=== PATIENT | male | born 1985 | race Caucasian/White ===

== ENCOUNTER 2018-03-10 10:17 | Emergency (ER) | payer SELFPAY ==
[~2018-03-10] VITALS: Ht 180.3 cm; Wt 109.0 kg
[2018-03-10 10:21] VITALS: BP 131/81
== END 2018-03-10 12:16 | disposition home or self-care (01) ==
LOC: ED 10:45
DX: J20.9 Acute bronchitis, unspecified (principal); J30.2 Other seasonal allergic rhinitis; F17.210 Nicotine dependence, cigarettes, uncomplicated
CPT/HCPCS: 71046; 93005; 99284

== ENCOUNTER 2019-07-18 09:32 | Emergency (ER) | payer MEDICAID ==
[~2019-07-18] VITALS: Ht 180.3 cm; Wt 134.0 kg
[2019-07-18 09:35] VITALS: BP 158/87
--- NOTE | 2019-07-18 09:42 | NUR ---
PATIENT BROUGHT BACK FROM TRIAGE WITH CHIEF COMPLAINT OF RIGHT DENTAL PAIN STARTING LAST NIGHT.
--- NOTE | 2019-07-18 10:02 | NUR ---
DISCHARGE INSTRUCTIONS REVIEWED
== END 2019-07-18 10:04 | disposition home or self-care (01) ==
LOC: ED 09:50
DX: K02.9 Dental caries, unspecified (principal); K08.89 Other specified disorders of teeth and supporting structures
CPT/HCPCS: 99283

== ENCOUNTER 2020-10-06 08:26 | Emergency (ER) | payer MEDICAID ==
[~2020-10-06] VITALS: Ht 180.3 cm; Wt 136.0 kg
--- NOTE | 2020-10-06 08:47 | NUR ---
ER PROVIDER AT BEDSIDE FOR EVALUATION.
--- NOTE | 2020-10-06 08:49 | NUR ---
PATIENT WALKED BACK FROM TRIAGE WITH CHIEF C/O "THE WORST COLD OF MY LIFE." PER PATIENT FOR 1.5 WEEKS HE'S HAD FEVER, COUGH, BODY ACHES. PATIENT DENIES N/V/D. PATIENT STATES "I JUST WANT TO MAKE SURE I DON'T HAVE COVID." OSWALDO, SARAH, CALL LIGHT WITHIN REACH.
--- NOTE | 2020-10-06 09:06 | NUR ---
X-RAY TECH AT BEDSIDE.
[2020-10-06 09:37] VITALS: BP 163/96
--- NOTE | 2020-10-06 09:45 | NUR ---
Patient given discharge instructions and prescriptions and they have confirmed that they understand the instructions. Patient stable and ambulatory with steady gait from ED to private vehicle.
== END 2020-10-06 09:46 | disposition home or self-care (01) ==
LOC: ED 09:13
DX: J18.0 Bronchopneumonia, unspecified organism (principal); Z20.822 Contact with and (suspected) exposure to COVID-19; R09.81 Nasal congestion; R05 Cough; R50.9 Fever, unspecified; M79.10 Myalgia, unspecified site
CPT/HCPCS: 71045; 87635; 99284

== ENCOUNTER 2021-02-25 11:47 | Emergency (ER) | payer MEDICAID ==
[~2021-02-25] VITALS: Ht 180.3 cm; Wt 138.6 kg
--- NOTE | 2021-02-25 12:24 | NUR ---
INTNAL CONTACT WITH PT: "THE LAST COUPLE OF DAYS MY LEFT FOOT HAS BEEN SUPER SWOLLEN AND NOW MY RIGHT ONE IS STARTING TO GET SWOLLEN. I HAVE PAIN IN MY LEFT CALF WHEN I PUSH IT". SX STARTED 4-5 DAYS AGO. PT ATTACHED TO MONITORS. VSS. CHACON. AWAITING RESULTS.
[2021-02-25 12:25] LABS: BASOPHILS % (AUTO) 1 % (0-1); EOSINOPHILS % (AUTO) 3 % (1-7); LYMPHOCYTES % (AUTO) 35 % (22-44); MEAN CORPUSCULAR HEMOGLOBIN 32.2 pg (27.5-34.5); MEAN CORPUSCULAR HGB CONC 34.6 g/dL (33.2-36.2); MEAN PLATELET VOLUME 7.9 fL (7.4-10.4); MONOCYTES % (AUTO) 7 % (2-9); NEUTROPHILS % (AUTO) 54 % (42-75); PLATELET COUNT 223 x10^3/uL (130-400); RED BLOOD COUNT 4.92 x10^6/uL (4.38-5.82); RED CELL DISTRIBUTION WIDTH 14.1 % (9.4-14.8)
[2021-02-25 12:38] LABS: ALANINE AMINOTRANSFERASE 39 U/L (12-78); ALBUMIN 3.3 g/dL (3.4-5.0); ANION GAP 5 mmol/L (5-15); CHLORIDE 112 mmol/L (98-107); CREATININE 1.07 mg/dL (0.7-1.3)
[2021-02-25 12:42] LABS: ALKALINE PHOSPHATASE 76 U/L (45-117); BILIRUBIN,TOTAL 0.6 mg/dL (0.2-1.0); TOTAL PROTEIN 6.7 g/dL (6.4-8.2)
[2021-02-25 13:23] VITALS: BP 138/88
--- NOTE | 2021-02-25 13:47 | NUR ---
Patient given discharge instructions and they have confirmed that they understand the instructions. Patient ambulatory with steady gait. NAD, all questions answered appropriately, denies additional needs at this time. No personal belongings left in room after discharge.
== END 2021-02-25 13:48 | disposition home or self-care (01) ==
LOC: ED 13:00
DX: R60.0 Localized edema (principal); R06.89 Other abnormalities of breathing; R94.31 Abnormal electrocardiogram [ECG] [EKG]
CPT/HCPCS: 36415; 71045; 80053; 83880; 85025; 93005; 99285